=== PATIENT | female | born 1995 | race Caucasian/White ===

== ENCOUNTER 2017-05-19 12:17 | Emergency (ER) | payer OTHER ==
[~2017-05-19] VITALS: Ht 172.7 cm; Wt 69.0 kg
[2017-05-19 12:19] VITALS: Ht 172.7 cm; Wt 69.0 kg
[2017-05-19] MEDS ORDERED: PRED20TA PO (12:59)
--- NOTE | 2017-05-19 13:06 | ERD ---
ER Documentation Chief Complaint Date/Time DATE: 05/19/17 TIME: 13:01 Chief Complaint pt bib self with c/o awoke with rash all over, no resp distress HPI Patient's is a 22-year-old female who woke up with a rash all over her body. She states it does not itch. She denies any food so far is that she can think of. No fever. No difficulty breathing or speaking or swelling of her lips or tongue. ROS All systems reviewed and are negative except as per history of present illness. Medications Home Meds Active Scripts Prednisone* (Prednisone*) 20 Mg Tab, 40 MG PO DAILY for 4 Days, TAB Prov:JERRYGARY KAY 05/19/17 Allergies Allergies: Coded Allergies: Penicillins (Verified Allergy, Mild, 12/23/09) Uncoded Allergies: PCN (Allergy, Mild, 06/20/10) PMhx/Soc History of Surgery: No Anesthesia Reaction: No Hx Neurological Disorder: No Hx Respiratory Disorders: No Hx Cardiac Disorders: No Hx Psychiatric Problems: No Hx Miscellaneous Medical Probl: No Hx Alcohol Use: No Hx Substance Use: No Hx Tobacco Use: No FmHx Family History: No diabetes Physical Exam Vitals Vital Signs Date Time Temp Pulse Resp B/P Pulse Ox O2 Delivery O2 Flow Rate FiO2 05/19/17 12:19 98.5 100 20 104/59 99 Physical Exam Const: [] Head: Atraumatic Eyes: Normal Conjunctiva ENT: Normal External Ears, Nose and Mouth. Neck: Full range of motion..~ No meningismus. Resp: Clear to auscultation bilaterally Cardio: Regular rate and rhythm, no murmurs Abd: Soft, non tender, non distended. Normal bowel sounds Skin: multiple macular papular lesions over body, no vesicles/pustles, no warmth, blanchable Procedures/MDM Patient presents with a rash. Patients is alert, oriented, well appearing, and in no distress with normal vital signs. There is no fever, tachycardia, or tachypnea. Patient discharged a short course of prednisone. Patient counseled regarding my diagnostic impression and care plan. Prior to discharge all questions answered. Pt agrees with treatment plan and understands strict return precautions. Pt is instructed to follow up with primary care provider within 24- 48 hours. Precautionary instructions provided including instructions to return to the ER if not improving or for any worsening or changing symptoms or concerns. Departure Diagnosis: Primary Impression: Rash Condition: Stable Patient Instructions: Self-Care for Skin Rashes Additional Instructions: Call your primary care doctor TOMORROW for an appointment during the next 1-2 days.See the doctor sooner or return here if your condition worsens before your appointment time. GARY EDWARDS PA-C May 19, 2017 13:06
== END 2017-05-19 13:10 | disposition home or self-care (01) ==
LOC: FTE 12:17
DX: R21 Rash and other nonspecific skin eruption (principal)
CPT/HCPCS: 99283

== ENCOUNTER 2018-06-05 12:09 | Emergency (ER) | END 2018-06-05 14:14 | disposition home or self-care (01) ==

== ENCOUNTER 2018-07-31 20:54 | Emergency (ER) | END 2018-08-01 02:19 | disposition home or self-care (01) ==